=== PATIENT | female | born 1985 | race Two or more races ===

== ENCOUNTER → 2017-07-23 | Emergency (ER) | payer OTHER ==
[~2017-07-23] VITALS: Ht 160 cm; Wt 104.3 kg
[~2017-07-23] MED LIST: XARELTO15 MG PO; XARELTO20 MG PO; YASMIN 28 TABL1 EACH
== END | disposition home or self-care (01) ==
LOC: ER 08:00
DX: I82.4Z2 Acute embolism and thrombosis of unspecified deep veins of left distal lower extremity (principal); M79.672 Pain in left foot